=== PATIENT | female | born 1985 | race Caucasian/White ===

== ENCOUNTER 2024-06-21 08:19 | Outpatient (AMB) | payer OTHER, SELFPAY ==
[2024-06-21 08:23] VITALS: BP 108/74; PULSE 67; TEMP 36.8; O2SAT 98; BMI 36.7
--- NOTE | 2024-06-21 08:23 | MHC.OFFWIV ---
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 Intake Note: pt c/o RT eye pain. ? pink eye. Feels like sand in it. Started yesterday Patient Tobacco Use Status: Former Tobacco user Allergies No Known Allergies [No Known Allergies*] Allergy (Verified 06/21/24 08:29) Medication List - Last Reconciled 06/21/24 by Rome Martinez MD albuterol sulfate 90 mcg/actuation inhalation sertraline 100 mg PO DAILY Do you need a note to return to daycare/school/sports/work: No HPI PROJECT SURVEYOR RT eye pain, pink eye? HPI Details Patient is a 39-year-old female came in today to be evaluated for pink eye right side Patient says that yesterday she noticed that her eye was turning pink She did not had any discharge this morning woke up with still pink eye but better than yesterday There is no pain in the eye there is no photophobia Patient says that she does not think she has allergies Eye movement does not cause any pain just feels irritated Examination patient have slightly injected medial and lateral part of pink conjunctiva Cornea is clear there is no photophobia EOMI I am treating her with Naphcon A eyedrops Patient was notified that this medication is [id number] just in case if pharmacy does not cover it she can get it If her symptoms changes and she started having discharge from her eye she is to get back to me. [facility] Social History Patient Tobacco Use Status: Former Tobacco user Review of Systems Const All systems reviewed & are unremarkable except as noted in HPI and below Physical Exam Vital Signs: Last Vital Signs Temp 98.2 F 06/21/24 08:23 Pulse 67 06/21/24 08:23 BP 108/74 06/21/24 08:23 Pulse Ox 98 06/21/24 08:23 Oxygen Delivery Method Room Air 06/21/24 08:23 BMI result Body Mass Index 36.7 Const General: no acute distress Orientation/consciousness: patient oriented x3 Eyes Other: Right eye with injected medial and lateral part of conjunctiva without any discharge, cornea is clear, ASIF, EOMI, no pain with palpation of I Resp Effort & Inspection: normal respiratory effort and able to speak in complete sentences Auscultation: clear to auscultation bilaterally Neuro General: patient oriented x3 Psych Mental Status: mental status grossly normal Assessment & Plan Assessment & Plan (1) Acute conjunctivitis, right eye: Code(s): H10.31 - Unspecified acute conjunctivitis, right eye Qualifiers: Acute conjunctivitis type: atopic Qualified Code(s): H10.11 - Acute atopic conjunctivitis, right eye Plan Patient is a 39-year-old female came in today to be evaluated for pink eye right side Patient says that yesterday she noticed that her eye was turning pink She did not had any discharge this morning woke up with still pink eye but better than yesterday There is no pain in the eye there is no photophobia Patient says that she does not think she has allergies Eye movement does not cause any pain just feels irritated Examination patient have slightly injected medial and lateral part of pink conjunctiva Cornea is clear there is no photophobia EOMI I am treating her with Naphcon A eyedrops Patient was notified that this medication is [id number] just in case if pharmacy does not cover it she can get it If her symptoms changes and she started having discharge from her eye she is to get back to me. Medications: New naphazoline-pheniramine 0.025-0.3 % (Naphcon-A) 1 drp ophthalmic (eye) BID-QID 7 days PRN 15 mL 0RF [place] eyes Coding Level of Care Code New Pt Level 3 (26292) Diagnoses Acute atopic conjunctivitis of right eye H10.11 Acute conjunctivitis type: atopic
== END 2024-06-21 08:47 | disposition home or self-care (01) ==
PROVIDERS: Visit Provider Internal Medicine
DX: H10.11 Acute atopic conjunctivitis, right eye (principal)
CPT/HCPCS: 99203